=== PATIENT | male | born 1955 | race Two or more races ===

== ENCOUNTER 2023-08-16 01:27 | Emergency (ER) | payer OTHER ==
[~2023-08-16] VITALS: Ht 172.7 cm; Wt 76.4 kg
[2023-08-16 01:47] VITALS: BP 130/75; PULSE 87; RESP 17; TEMP 97.7; O2SAT 96
[2023-08-16] MEDS ORDERED: ACE3T PO (03:58)
== END 2023-08-16 04:13 | disposition home or self-care (01) ==
LOC: ER 01:27
DX: S82.892A Other fracture of left lower leg, initial encounter for closed fracture (principal); E78.5 Hyperlipidemia, unspecified; Z98.890 Other specified postprocedural states; Z79.899 Other long term (current) drug therapy; X50.1XXA Overexertion from prolonged static or awkward postures, initial encounter; Y93.01 Activity, walking, marching and hiking; Y92.828 Other wilderness area as the place of occurrence of the external cause; Y99.8 Other external cause status
CPT/HCPCS: 29515; 73610